=== PATIENT | male | born 1950 | race African-American/Black ===

== ENCOUNTER 2016-12-24 04:29 | Emergency (ER) | payer OTHER ==
[~2016-12-24] VITALS: Ht 172.7 cm; Wt 74.4 kg
--- NOTE | ~2016-12-24 | EKG ---
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
[2016-12-24] MEDS ORDERED: HYZAAR 50-12.51 TAB (04:48)
[2016-12-24] MEDS ORDERED: FINESTERIDE (04:49)
[2016-12-24] MEDS ORDERED: FISH OIL 1,001000 M2 (04:50)
[2016-12-24] MEDS ORDERED: NUMOISYN300 ML (04:50)
[2016-12-24] MEDS ORDERED: DOXYCYCLINE 10100 M1 (04:50)
[2016-12-24] MEDS ORDERED: VITAMIN D2000 UNIT PO (04:51)
[2016-12-24] MEDS ORDERED: [UNRECOGNIZED DRUG - OTHER] (04:52)
[2016-12-24 05:05] LABS: ABSOLUTE NEUTROPHILS 1.4 thou/uL (1.4-8.2); BASOPHILS 0.8 % (0.0-2.0); HEMATOCRIT 47.1 % (42.0-52.0); HEMOGLOBIN 16.2 gm/dL (14.0-18.0); LYMPHOCYTES 47.1 % (24.0-44.0); MCH 31.8 pg (26.0-34.0); MCHC 34.3 % (28.0-37.0); MCV 92.5 fL (80.0-100.0); PLATELET COUNT 168 thou/uL (150-400); POLYS 40.1 % (36.0-66.0); RDW 14.3 % (10.5-14.5); WBC 3.6 thou/uL (4.0-11.0)
[2016-12-24 05:06] LABS: MANUAL DIFF NO
[2016-12-24 05:16] LABS: APTT 28.5 Seconds (24.5-32.8); PROTIME 10.7 Seconds (9.3-11.4)
[2016-12-24 05:28] LABS: ANION GAP 9 mmol/L (7-16); BUN 26 mg/dL (7-18); CALCIUM 9.2 mg/dL (8.5-10.1); CHLORIDE 103 mmol/L (98-107); CO2 27 mmol/L (21-32); CREATININE 1.5 mg/dL (0.6-1.3); GLUCOSE 95 mg/dL (70-99); SODIUM 139 mmol/L (136-145)
[2016-12-24 05:43] LABS: ALBUMIN 3.7 g/dL (3.4-5.0); ALKALINE PHOSPHATASE 93 U/L (46-116); NT-PRO BRAIN NAT PEPTIDE 7 pg/mL (<300); SGOT 23 U/L (15-37); SGPT 33 U/L (30-65); TOTAL BILIRUBIN 0.6 mg/dL (<0.1-1.0); TOTAL PROTEIN 7.2 g/dL (6.4-8.2); TROPONIN-I < 0.04 ng/mL (<0.04-0.07)
[2016-12-24 06:12] LABS: POTASSIUM 3.3 mmol/L (3.5-5.1)
[2016-12-24 07:05] VITALS: BP 132/87
== END 2016-12-24 07:06 | disposition home or self-care (01) ==
LOC: ER 04:29
PROVIDERS: Emergency Medicine
DX: R07.89 Other chest pain (principal); I12.9 Hypertensive chronic kidney disease with stage 1 through stage 4 chronic kidney disease, or unspecified chronic kidney disease; N18.3 Chronic kidney disease, stage 3 (moderate); E78.5 Hyperlipidemia, unspecified; Z88.0 Allergy status to penicillin

== ENCOUNTER 2018-02-06 05:34 | Emergency (ER) | payer OTHER ==
[~2018-02-06] VITALS: Ht 167.6 cm; Wt 72.6 kg
--- NOTE | ~2018-02-06 | EKG ---
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: JCDEMARCUS : 1950 Requested By: Sandip Skinner Order Number: [id number] MD: Ming Cagle Measurements Intervals [place] Rate: 65 P: 13 [place]: 163 QRS: 27 QRSD: 100 T: 51 QT: 411 QTc: 428 Interpretive Statements Sinus rhythm Early R-wave progression Minimal ST elevation, anterior leads Compared to ECG 01/09/2017 19:32:01 No significant change was found Electronically Signed On 02-07-2018 13:13:42 CDT by Ming Cagle [email or web address] <ELECTRONICALLY SIGNED> By: Ming Cagle MD, [facility] 02/07/18 1313 0544 0544 Ming Cagle MD, [facility] /EPI
[~2018-02-06 05:34] MED LIST: DOXYCYCLINE 10100 M1; FINESTERIDE; FISH OIL 1,001000 M2; HYZAAR 50-12.51 TAB; NUMOISYN300 ML; VITAMIN D2000 UNIT PO; [UNRECOGNIZED DRUG - OTHER]
[2018-02-06 06:17] LABS: ABSOLUTE NEUTROPHILS 1.1 thou/uL (1.4-8.2); BASOPHILS 0.7 % (0.0-2.0); EOSINOPHILS 1.7 % (0.0-3.0); HEMATOCRIT 42.7 % (42.0-52.0); HEMOGLOBIN 14.3 gm/dL (14.0-18.0); LYMPHOCYTES 54.8 % (24.0-44.0); MCH 31.2 pg (26.0-34.0); MCHC 33.5 g/dL (28.0-37.0); MCV 93.1 fL (80.0-100.0); MONOCYTES 10.3 % (1.0-8.0); PLATELET COUNT 166 thou/uL (150-400); POLYS 32.5 % (36.0-66.0); RBC 4.58 mil/uL (4.50-6.00); RDW 14.8 % (10.5-14.5); WBC 3.4 thou/uL (4.0-11.0)
[2018-02-06 06:21] LABS: ANION GAP 9 mmol/L (7-16); BUN 22 mg/dL (7-18); CALCIUM 8.7 mg/dL (8.5-10.1); CHLORIDE 106 mmol/L (98-107); CO2 27 mmol/L (21-32); CREATININE 1.4 mg/dL (0.7-1.3); GLUCOSE 103 mg/dL (74-106); POTASSIUM 3.1 mmol/L (3.5-5.1); SODIUM 142 mmol/L (136-145)
[2018-02-06 06:30] LABS: TROPONIN-I < 0.04 ng/mL (<0.06)
[2018-02-06] MEDS ORDERED: IBUPROFEN 600600 M1 PO (08:37)
== END 2018-02-06 08:54 | disposition home or self-care (01) ==
LOC: ER 05:34
PROVIDERS: Emergency Medicine
DX: M79.602 Pain in left arm (principal); R07.89 Other chest pain; I10 Essential (primary) hypertension; E78.00 Pure hypercholesterolemia, unspecified; Z88.0 Allergy status to penicillin

== ENCOUNTER 2018-11-03 12:06 | Emergency (ER) | payer OTHER ==
[~2018-11-03] VITALS: Ht 167.6 cm; Wt 72.6 kg
--- NOTE | ~2018-11-03 | EKG ---
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
[~2018-11-03 12:06] MED LIST changes: +IBUPROFEN 600600 M1 PO
[2018-11-03 13:13] LABS: ABSOLUTE NEUTROPHILS 1.3 thou/uL (1.4-8.2); BASOPHILS 0.6 % (0.0-2.0); EOSINOPHILS 1.1 % (0.0-3.0); HEMATOCRIT 45.8 % (42.0-52.0); LYMPHOCYTES 47.6 % (24.0-44.0); MCH 32.1 pg (26.0-34.0); MCHC 34.8 g/dL (28.0-37.0); MCV 92.3 fL (80.0-100.0); MONOCYTES 10.7 % (1.0-8.0); RBC 4.97 mil/uL (4.50-6.00); RDW 14.8 % (10.5-14.5); WBC 3.3 thou/uL (4.0-11.0)
[2018-11-03 13:38] LABS: ANION GAP 8 mmol/L (7-16); BUN 20 mg/dL (7-18); CALCIUM 9.2 mg/dL (8.5-10.1); CHLORIDE 103 mmol/L (98-107); CO2 25 mmol/L (21-32); CREATININE 1.5 mg/dL (0.7-1.3); GLUCOSE 109 mg/dL (74-106); POTASSIUM 3.3 mmol/L (3.5-5.1); SODIUM 136 mmol/L (136-145)
[2018-11-03 13:43] LABS: ALBUMIN 3.5 g/dL (3.4-5.0); SGOT 21 U/L (15-37); SGPT 31 U/L (30-65); TOTAL BILIRUBIN 0.7 mg/dL (<0.1-1.0); TOTAL PROTEIN 7.2 g/dL (6.4-8.2); TROPONIN-I <0.06 ng/mL (<0.06)
[2018-11-03 14:00] LABS: LARGE PLATELETS RARE; PLATELET COUNT 187 thou/uL (150-400)
[2018-11-03 14:44] VITALS: BP 128/81
== END 2018-11-03 14:45 | disposition home or self-care (01) ==
LOC: ER 12:06
PROVIDERS: Student in an Organized Health Care Education/Training Program
DX: R07.89 Other chest pain (principal); I10 Essential (primary) hypertension; E78.00 Pure hypercholesterolemia, unspecified; Z88.0 Allergy status to penicillin